=== PATIENT | female | born 1965 | race African-American/Black ===

== ENCOUNTER 2016-10-26 17:50 | Emergency (ER) | payer SELFPAY ==
[~2016-10-26] VITALS: Ht 170.2 cm; Wt 159.0 kg
[2016-10-26 17:52] VITALS: BP 197/89; PULSE 90; RESP 20; TEMP 99.6; O2SAT 100
--- NOTE | 2016-10-26 18:04 | PD ---
Physical Exam Time Seen by Provider: 18:02 Narrative 51yo F c/o epigastric abd pain since Monday night. +N, V, diarrhea. Denies fever. Basilio blood in stool or vomit. Patient seen in triage. VS reviewed. Awaiting bed placement. Data Data Last Documented VS Vital Signs Date Time Temp Pulse Resp B/P Pulse Ox O2 Delivery O2 Flow Rate FiO2 10/26/16 17:52 99.6 90 20 197/89 100 Room Air MDM Supervised Visit with CAMILA: Donita Cleveland Oct 26, 2016 18:04
[2016-10-26] MEDS ORDERED: SODIUM CHLOR 0.9% 1000 ML INJ 1,000 ML IV SCH (18:19)
--- NOTE | 2016-10-26 18:20 | PD ---
HPI Chief Complaint: Abdominal Pain Time Seen by Provider: 18:20 Travel History International Travel<30 days: No Contact w/Intl Traveler<30days: No Traveled to known affect area: No History of Present Illness HPI 51-year-old female with a history of hypertension presents to the emergency department for evaluation of epigastric abdominal pain with nausea, vomiting and diarrhea for 3 days. Patient states that the epigastric pain is sharp and intermittent. Denies any aggravating or alleviating factors. States that she' s had nausea with 1-2 episodes of nonbloody nonbilious emesis over the past 2 days, no vomiting today. States that she's had nonbloody diarrhea for the past 3 days. Denies any fever, chills, chest pain, shortness of breath, cough or cold symptoms, dysuria, hematuria. Denies any recent travel or sick contacts. Prior abdominal surgeries include cholecystectomy. No other complaints. PFSH Past Medical History ?: Not Social History Alcohol Use: Yes (occasional) Tobacco Use: Yes Allergies-Medications (Allergen,Severity, Reaction): Coded Allergies: Percocet (Verified Allergy, Unknown, 10/26/16) Review of Systems Except as stated in HPI: all other systems reviewed are Neg Physical Exam Narrative GENERAL: Obese female patient in no acute distress who is nontoxic appearing. SKIN: Warm and dry. HEAD: Normocephalic and atraumatic. EYES: No injection, drainage, or hyphema noted. PERRLA. EOMI. ENT: No nasal drainage noted. Oropharynx is clear. NECK: Supple and the trachea is midline. CARDIOVASCULAR: Regular rate and rhythm. RESPIRATORY: Breath sounds are equal bilaterally with no accessory muscle use, wheezing, rhonchi, or crackles. GASTROINTESTINAL: Mild epigastric tenderness to palpation. Abdomen is soft and nondistended. No rebound tenderness or guarding. MUSCULOSKELETAL: No obvious deformities, swelling, cyanosis, or ecchymosis is present throughout the upper and lower extremities. Patient has full range of motion without any signs of neurovascular compromise. NEUROLOGICAL: Awake, alert, and oriented. Normal speech and gait. Cranial nerves are grossly intact. Data Data Last Documented VS Vital Signs Date Time Temp Pulse Resp B/P Pulse Ox O2 Delivery O2 Flow Rate FiO2 10/26/16 18:49 81 16 185/103 97 Room Air 10/26/16 17:52 99.6 Orders Complete Blood Count With Diff (10/26/16 18:10) Comprehensive Metabolic Panel (10/26/16 18:10) Lipase (10/26/16 18:10) Urinalysis - C+S If Indicated (10/26/16 18:10) Iv Access Insert/Monitor (10/26/16 18:10) Ecg Monitoring (10/26/16 18:10) Oximetry (10/26/16 18:10) Ed Urine Pregnancytest Poc (10/26/16 18:10) Ondansetron Inj (Zofran Inj) (10/26/16 18:30) Sodium Chlor 0.9% 1000 Ml Inj (Ns 1000 M (10/26/16 18:19) Sodium Chloride 0.9% Flush (Ns Flush) (10/26/16 18:30) Famotidine Inj (Pepcid Inj) (10/26/16 18:30) Ketorolac Inj (Toradol Inj) (10/26/16 18:30) Electrocardiogram (10/26/16 18:23) Al-Mag Hy-Si 40-40-4 Mg/Ml Liq (Mag-Al P (10/26/16 19:45) Lidocaine 2% Viscous (Xylocaine 2% Visco (10/26/16 19:45) Labs Laboratory Tests Test 10/26/16 10/26/16 18:30 18:34 Urine Color YELLOW Urine Turbidity HAZY Urine pH 7.0 Urine Specific [place] 1.014 Urine Protein TRACE mg/dL Urine Glucose (UA) NEG mg/dL Urine Ketones NEG mg/dL Urine Occult Blood MOD Urine Nitrite NEG Urine Bilirubin NEG Urine Urobilinogen 2.0 MG/DL Urine Leukocyte Esterase NEG Urine RBC 2 /hpf Urine WBC 2 /hpf Urine Squamous Epithelial 6 /hpf Cells Urine Mucus FEW /lpf Microscopic Urinalysis Comment CULT NOT INDICATED White Blood Count 7.9 TH/MM3 Red Blood Count 4.74 MIL/MM3 Hemoglobin 10.5 GM/DL Hematocrit 32.2 % Mean Corpuscular Volume 68.0 FL Mean Corpuscular Hemoglobin 22.2 PG Mean Corpuscular Hemoglobin 32.7 % Concent Red Cell Distribution Width 21.7 % Platelet Count 331 TH/MM3 Mean Platelet Volume 9.1 FL Neutrophils (%) (Auto) 65.2 % Lymphocytes (%) (Auto) 22.8 % Monocytes (%) (Auto) 8.4 % Eosinophils (%) (Auto) 3.4 % Basophils (%) (Auto) 0.2 % Neutrophils # (Auto) 5.1 TH/MM3 Lymphocytes # (Auto) 1.8 TH/MM3 Monocytes # (Auto) 0.7 TH/MM3 Eosinophils # (Auto) 0.3 TH/MM3 Basophils # (Auto) 0.0 TH/MM3 CBC Comment DIFF FINAL Differential Comment Sodium Level 139 MEQ/L Potassium Level 3.4 MEQ/L Chloride Level 103 MEQ/L Carbon Dioxide Level 30.5 MEQ/L Anion Gap 6 MEQ/L Blood Urea Nitrogen 4 MG/DL Creatinine 0.68 MG/DL Estimat Glomerular Filtration 111 ML/MIN Rate Random Glucose 101 MG/DL Calcium Level 8.3 MG/DL Total Bilirubin 0.4 MG/DL Aspartate Amino Transf 10 U/L (AST/SGOT) Alanine Aminotransferase 12 U/L (ALT/SGPT) Alkaline Phosphatase 84 U/L Total Protein 8.2 GM/DL Albumin 3.0 GM/DL Lipase 63 U/L [facility] Medical Decision Making Medical Screen Exam Complete: Yes Emergency Medical Condition: Yes Differential Diagnosis Gastritis versus peptic ulcer disease versus gastroenteritis versus dehydration Narrative Course 51-year-old female presents to the emergency department for evaluation of epigastric abdominal pain for 3 days. Patient is afebrile, vital signs are stable. She is hypertensive with blood pressure 197/89. She admits that she does not take any blood pressure medications at this time because she does not have a PCP. IV access is obtained, labs were drawn and sent. Patient is administered IV fluids, Zofran, Pepcid and Toradol. CBC shows mild anemia with hemoglobin of 10.5, hematocrit 32.2, otherwise unremarkable. CMP shows mild hypokalemia with potassium of 3.4, otherwise unremarkable. Urinalysis shows moderate occult blood and few mucus. Patient is reassessed and reports some improvement of symptoms with the medications. I discussed with the patient that this is likely secondary to gastritis. She admits that she does have frequent gastric reflux and indigestion. She'll be given a GI cocktail and discharged home with Zantac. Instructed to follow-up with an outpatient with a PCP. Discussed diet modifications. Patient verbalizes understanding and agreement with treatment plan. Diagnosis Primary Impression: Gastritis Qualified Code: K29.00 - Acute gastritis without hemorrhage, unspecified gastritis type Referrals: [facility] Patient Instructions: Gastritis (ED), General Instructions Additional Instructions: Take medication as prescribed. Follow-up with your Primary Care Physician. Return to the ED for any acute worsening of symptoms. Med/Other Pt SpecificInfo: Prescription(s) given Scripts Ranitidine 150 Mg [id number] Mg PO BID 14 Days Ref 0 Prov:Romina Berry MD 10/26/16 Disposition: 01 DISCHARGE HOME Condition: Stable Donita Hinojosa Oct 26, 2016 18:20
[2016-10-26] MEDS ORDERED: KETOROLAC TROMETHAMINE 30 MG/ML (IVP) VIAL IV PUSH ONE (18:30)
[2016-10-26] MEDS ORDERED: ONDANSETRON HCL 4 MG/2 ML VIAL IVP ONE (18:30)
[2016-10-26] MEDS ORDERED: SODIUM CHLORIDE 0.9% FLUSH 10 ML FLUSH IV FLUSH PRN (18:30)
[2016-10-26] MEDS ORDERED: FAMOTIDINE 20 MG/2 ML VIAL IV PUSH ONE (18:30)
[2016-10-26 18:45] LABS: AUTOMATED NEUTROPHIL # 5.1 TH/MM3 (1.8-7.7); BASOPHIL % 0.2 % (0.0-2.0); EOSINOPHIL # 0.3 TH/MM3 (0-0.4); EOSINOPHIL % 3.4 % (0.0-4.0); HEMATOCRIT 32.2 % (35.0-46.0); HEMO FLAGS DIFF FINAL; LYMPH % 22.8 % (9.0-44.0); LYMPHOCYTE # 1.8 TH/MM3 (1.0-4.8); MEAN CORPUSCULAR HEMOGLOBIN 22.2 PG (27.0-34.0); MEAN CORPUSCULAR HGB CONC 32.7 % (32.0-36.0); MONO % 8.4 % (0.0-8.0); NEUT % 65.2 % (16.0-70.0); PLATELET COUNT 331 TH/MM3 (150-450); RED BLOOD COUNT 4.74 MIL/MM3 (4.00-5.30); RED CELL DISTRIBUTION WIDTH 21.7 % (11.6-17.2); WHITE BLOOD COUNT 7.9 TH/MM3 (4.0-11.0)
[2016-10-26 18:49] VITALS: BP 185/103; PULSE 81; RESP 16; O2SAT 97; O2SAT 99
[2016-10-26 18:59] LABS: BLOOD, URINE MOD (NEG); COMMENT (UR) CULT NOT INDICATED; CULTURE IF INDICATED CULT NOT INDICATED; GLUCOSE,URINE NEG (NEG); KETONE, URINE NEG (NEG); MUCUS URINE FEW /lpf (OCC); NITRITE,URINE NEG (NEG); SQUAMOUS EPITHELIAL CELL URINE 6 /hpf (0-5); URINE COLOR YELLOW (YELLW/STRAW)
[2016-10-26 19:12] LABS: ANION GAP 6 MEQ/L (5-15); AST (GOT) 10 U/L (15-37); BICARBONATE 30.5 MEQ/L (21.0-32.0); BLOOD UREA NITROGEN 4 MG/DL (7-18); CHLORIDE 103 MEQ/L (98-107); GLOMERULAR FILTRATION RATE 111 ML/MIN (>89); POTASSIUM 3.4 MEQ/L (3.5-5.1); SODIUM (NA) 139 MEQ/L (136-145)
[2016-10-26 19:16] LABS: ALKALINE PHOSPHATASE 84 U/L (45-117); ALT (GPT) 12 U/L (10-53); TOTAL BILIRUBIN ADULT 0.4 MG/DL (0.2-1.0)
[2016-10-26] MEDS ORDERED: RANI150T PO (19:38)
[2016-10-26] MEDS ORDERED: ALUMINUM/MAGNESIUM/SIMETH 30 ML CUP PO ONE (19:45)
[2016-10-26] MEDS ORDERED: LIDOCAINE VISCOUS 2% SOLN 15 ML UDC PO ONE (19:45)
--- NOTE | 2016-10-27 13:59 | EKG ---
Date Performed: 10/26/2016 Time Performed: 18:48:26 PTAGE: 51 years EKG: Sinus rhythm POSSIBLE LEFT ATRIAL ENLARGEMENT BORDERLINE ECG NO PREVIOUS TRACING DOCTOR: Jalil Godoy Interpretating Date/Time 10/27/2016 13:56:14
== END 2016-10-26 21:34 | disposition home or self-care (01) ==
LOC: NEPE 17:50
DX: K29.70 Gastritis, unspecified, without bleeding (principal); R11.2 Nausea with vomiting, unspecified; R19.7 Diarrhea, unspecified; Z72.0 Tobacco use; R94.31 Abnormal electrocardiogram [ECG] [EKG]
CPT/HCPCS: 80053; 81001; 83690; 84703; 85025; 93005; 96361; 96374; 96375; 99284; J1885; J2405; J7030

== ENCOUNTER 2016-10-28 21:14 | Emergency (ER) | payer SELFPAY ==
[~2016-10-28 21:14] MED LIST: RANI150T PO
[2016-10-28 21:16] VITALS: BP 196/105; PULSE 86; RESP 16; TEMP 99.5; O2SAT 96
[2016-10-28] MEDS ORDERED: SODIUM CHLOR 0.9% 1000 ML INJ 1,000 ML IV SCH (22:14)
[2016-10-28] MEDS ORDERED: SODIUM CHLORIDE 0.9% FLUSH 10 ML FLUSH IV FLUSH PRN (22:15)
[2016-10-28] MEDS ORDERED: MORPHINE SULFATE 4 MG/ML INJ IV PUSH ONE (22:15)
[2016-10-28] MEDS ORDERED: ONDANSETRON HCL 4 MG/2 ML VIAL IVP ONE (22:15)
[2016-10-28 22:40] VITALS: BP 147/93; PULSE 82; RESP 18; O2SAT 95
[2016-10-28 22:42] LABS: AUTOMATED NEUTROPHIL # 5.3 TH/MM3 (1.8-7.7); BASOPHIL % 0.4 % (0.0-2.0); EOSINOPHIL # 0.2 TH/MM3 (0-0.4); HEMATOCRIT 32.9 % (35.0-46.0); HEMO FLAGS DIFF FINAL; LYMPH % 23.3 % (9.0-44.0); LYMPHOCYTE # 1.8 TH/MM3 (1.0-4.8); MEAN CELL VOLUME 67.4 FL (80.0-100.0); MEAN CORPUSCULAR HEMOGLOBIN 21.7 PG (27.0-34.0); MEAN CORPUSCULAR HGB CONC 32.3 % (32.0-36.0); MONO % 6.6 % (0.0-8.0); NEUT % 66.7 % (16.0-70.0); PLATELET COUNT 378 TH/MM3 (150-450); RED BLOOD COUNT 4.89 MIL/MM3 (4.00-5.30); RED CELL DISTRIBUTION WIDTH 21.8 % (11.6-17.2); WHITE BLOOD COUNT 7.9 TH/MM3 (4.0-11.0)
[2016-10-28 22:54] LABS: BACTERIA, URINE RARE /hpf; BLOOD, URINE NEG (NEG); COMMENT (UR) CULT NOT INDICATED; CULTURE IF INDICATED CULT NOT INDICATED; GLUCOSE,URINE TRACE mg/dL (NEG); KETONE, URINE 10 mg/dL (NEG); MUCUS URINE MANY /lpf (OCC); NITRITE,URINE NEG (NEG); SQUAMOUS EPITHELIAL CELL URINE 6 /hpf (0-5); URINE COLOR DARK-YELLOW (YELLW/STRAW)
[2016-10-28 22:56] LABS: APTT (PATIENT) 28.5 SEC (24.3-30.1); PROTHROMBIN TIME - PATIENT 11.1 SEC (9.8-11.6)
[2016-10-28 23:08] LABS: ALKALINE PHOSPHATASE 78 U/L (45-117); ALT (GPT) 14 U/L (10-53); ANION GAP 9 MEQ/L (5-15); AST (GOT) 11 U/L (15-37); BICARBONATE 27.9 MEQ/L (21.0-32.0); BLOOD UREA NITROGEN 6 MG/DL (7-18); CHLORIDE 103 MEQ/L (98-107); GLOMERULAR FILTRATION RATE 98 ML/MIN (>89); INDIRECT BILIRUBIN 0.2 MG/DL (0.0-0.8); POTASSIUM 3.2 MEQ/L (3.5-5.1); SODIUM (NA) 140 MEQ/L (136-145); TOTAL BILIRUBIN ADULT 0.3 MG/DL (0.2-1.0)
[2016-10-28] MEDS ORDERED: IOHEXOL 350 MG/ML 10 ML VIAL (for RAD DIAG) IV ONE (23:18)
--- NOTE | 2016-10-28 23:40 | RADRPT ---
EXAM DATE/TIME: 10/28/2016 23:16 [place] COMPARISON: No previous studies available for comparison. INDICATIONS : Epigastric abdominal pain that radiates to back. IV CONTRAST: 100 cc Omnipaque 350 (iohexol) IV ORAL CONTRAST: No oral contrast ingested. RADIATION DOSE: 27.20 CTDIvol (mGy) MEDICAL HISTORY : Hypertension. SURGICAL HISTORY : Cholecystectomy. ENCOUNTER: Initial ACUITY: 4 - 6 days PAIN SCALE: 10/10 LOCATION: Bilateral Abdomen TECHNIQUE: Volumetric scanning of the abdomen and pelvis was performed. Using automated exposure control and ad justment of the mA and/or kV according to patient size, radiation dose was kept as low as reasonably achievable to obtain optimal diagnostic quality images. FINDINGS: LOWER LUNGS: The visualized lower lungs are clear. LIVER: Homogeneous density without lesion. The patient is status post cholecystectomy. SPLEEN: Normal size without lesion. PANCREAS: Within normal limits. KIDNEYS: Normal in size and shape. There is no mass, stone or hydronephrosis. ADRENAL GLANDS: Within normal limits. VASCULAR: There is no aortic aneurysm. BOWEL/MESENTERY: There are multiple diverticuli greatest in the sigmoid colon. The stomach, small bowel, and colon dem onstrate no acute abnormality. There is no free intraperitoneal air or fluid. There is a small hiata l hernia. ABDOMINAL WALL: Within normal limits. RETROPERITONEUM: There is no lymphadenopathy. BLADDER: No wall thickening or mass. REPRODUCTIVE: Within normal limits. INGUINAL: There is no lymphadenopathy or hernia. MUSCULOSKELETAL: Within normal limits for patient age. CONCLUSION: 1. Diverticulosis with no definite inflammatory change. 2. Status post cholecystectomy. 3. Small hiatal hernia. Abran Howell MD on October 28, 2016 at 23:34 Board Certified Radiologist. This report was verified electronically.
[2016-10-29] MEDS ORDERED: POTASSIUM CHLORIDE 20 MEQ CONTROLLED RELEASE TAB PO ONE (00:15)
[2016-10-29 00:23] VITALS: BP 161/85; PULSE 77; RESP 18; O2SAT 95
[2016-10-29] MEDS ORDERED: NORC5TAB PO (00:39)
--- NOTE | 2016-10-29 00:39 | PD ---
HPI Chief Complaint: Abdominal Pain Time Seen by Provider: 22:06 Travel History International Travel<30 days: No Contact w/Intl Traveler<30days: No Traveled to known affect area: No History of Present Illness HPI Patient is a 51-year-old female comes in complaining of abdominal pain. She says the pain is across the middle of her abdomen and radiates to her back. She also reports diarrhea for 5 days. She denies any blood in her stool. She was seen here a few days ago for the same thing and was discharged home and advised to take antacids. She says she continues to have pain. She has not had any vomiting. She denies fever or chills. She says it feels like pain that she had when she had issues with her gallbladder. She has had her gallbladder removed. [facility] Past Medical History Hypertension: Yes ?: Not Menopausal: No Past Surgical History Cholecystectomy: Yes Social History Alcohol Use: Yes (occasional) Tobacco Use: Yes (4 cigarettes per day) Substance Use: No Allergies-Medications (Allergen,Severity, Reaction): Coded Allergies: Percocet (Verified Allergy, Unknown, 10/28/16) Reported Meds & Prescriptions Reported Meds & Active Scripts Active [place] (Hydrocodone-Acetaminophen) 5-325 mg Tab 1 Tab PO Q6H PRN Ranitidine (Ranitidine HCl) 150 Mg Tab 150 Mg PO BID 14 Days Review of Systems Except as stated in HPI: all other systems reviewed are Neg General / Constitutional: No: Fever, Chills HENT: No: Headaches, Lightheadedness Cardiovascular: No: Chest Pain or Discomfort Respiratory: No: Shortness of Breath Gastrointestinal: Positive: Diarrhea, Abdominal Pain, No: Vomiting Genitourinary: No: Dysuria Skin: No Rash, No Change in Pigmentation Neurologic: No: Weakness, Dizziness Physical Exam Narrative GENERAL: Awake and alert, in no acute distress. SKIN: Focused skin assessment warm/dry. HEAD: Atraumatic. Normocephalic. EYES: Pupils equal and round. No scleral icterus. ENT: Mucous membranes pink and moist. NECK: Trachea midline. No JVD. CARDIOVASCULAR: Regular rate and rhythm. No murmur appreciated. RESPIRATORY: No accessory muscle use. Clear to auscultation. Breath sounds equal bilaterally. GASTROINTESTINAL: Abdomen soft, nondistended. Tender to palpation of the right upper quadrant and epigastric area. No rebound or guarding. No CVA tenderness. MUSCULOSKELETAL: No obvious deformities. No clubbing. No cyanosis. No edema. NEUROLOGICAL: Awake and alert. No obvious cranial nerve deficits. Motor grossly within normal limits. Normal speech. PSYCHIATRIC: Appropriate mood and affect; insight and judgment normal. Data Data Last Documented VS Vital Signs Date Time Temp Pulse Resp B/P Pulse Ox O2 Delivery O2 Flow Rate FiO2 10/29/16 00:23 77 18 161/85 95 Room Air 10/28/16 21:16 99.5 Orders Basic Metabolic Panel (Bmp) (10/28/16 22:14) Complete Blood Count With Diff (10/28/16 22:14) Lipase (10/28/16 22:14) Lactic Acid (10/28/16 22:14) Prothrombin Time / Inr (Pt) (10/28/16 22:14) Act Partial Throm Time (Ptt) (10/28/16 22:14) Urinalysis - C+S If Indicated (10/28/16 22:14) Ua Includes Microscopic (10/28/16 22:14) Ct Abd/Pel W Iv Contrast(Rout) (10/28/16 22:14) Iv Access Insert/Monitor (10/28/16 22:14) Ecg Monitoring (10/28/16 22:14) Oximetry (10/28/16 22:14) Morphine Inj (Morphine Inj) (10/28/16 22:15) Ondansetron Inj (Zofran Inj) (10/28/16 22:15) Sodium Chlor 0.9% 1000 Ml Inj (Ns 1000 M (10/28/16 22:14) Sodium Chloride 0.9% Flush (Ns Flush) (10/28/16 22:15) Electrocardiogram (10/28/16 22:14) Troponin I (10/28/16 22:14) Hepatic Functional Panel (10/28/16 22:14) Iohexol 350 Inj (Omnipaque 350 Inj) (10/28/16 23:18) Potassium Chloride (Kcl) (10/29/16 00:15) Labs Laboratory Tests Test 10/28/16 22:20 White Blood Count 7.9 TH/MM3 Red Blood Count 4.89 MIL/MM3 Hemoglobin 10.6 GM/DL Hematocrit 32.9 % Mean Corpuscular Volume 67.4 FL Mean Corpuscular Hemoglobin 21.7 PG Mean Corpuscular Hemoglobin 32.3 % Concent Red Cell Distribution Width 21.8 % Platelet Count 378 TH/MM3 Mean Platelet Volume 9.0 FL Neutrophils (%) (Auto) 66.7 % Lymphocytes (%) (Auto) 23.3 % Monocytes (%) (Auto) 6.6 % Eosinophils (%) (Auto) 3.0 % Basophils (%) (Auto) 0.4 % Neutrophils # (Auto) 5.3 TH/MM3 Lymphocytes # (Auto) 1.8 TH/MM3 Monocytes # (Auto) 0.5 TH/MM3 Eosinophils # (Auto) 0.2 TH/MM3 Basophils # (Auto) 0.0 TH/MM3 CBC Comment DIFF FINAL Differential Comment Prothrombin Time 11.1 SEC Prothromb Time International 1.0 RATIO Ratio Activated Partial 28.5 SEC Thromboplast Time Urine Color DARK-YELLOW Urine Turbidity HAZY Urine pH 6.0 Urine Specific [place] 1.026 Urine Protein 30 mg/dL Urine Glucose (UA) TRACE mg/dL Urine Ketones 10 mg/dL Urine Occult Blood NEG Urine Nitrite NEG Urine Bilirubin SMALL Urine Urobilinogen 2.0 MG/DL Urine Leukocyte Esterase TRACE Urine RBC 1 /hpf Urine WBC 4 /hpf Urine Squamous Epithelial 6 /hpf Cells Urine Bacteria RARE /hpf Urine Mucus MANY /lpf Microscopic Urinalysis Comment CULT NOT INDICATED Sodium Level 140 MEQ/L Potassium Level 3.2 MEQ/L Chloride Level 103 MEQ/L Carbon Dioxide Level 27.9 MEQ/L Anion Gap 9 MEQ/L Blood Urea Nitrogen 6 MG/DL Creatinine 0.76 MG/DL Estimat Glomerular Filtration 98 ML/MIN Rate Random Glucose 107 MG/DL Lactic Acid Level 0.9 mmol/L Calcium Level 8.5 MG/DL Total Bilirubin 0.3 MG/DL Direct Bilirubin 0.1 MG/DL Indirect Bilirubin 0.2 MG/DL Aspartate Amino Transf 11 U/L (AST/SGOT) Alanine Aminotransferase 14 U/L (ALT/SGPT) Alkaline Phosphatase 78 U/L Troponin I LESS THAN 0.02 NG/ML Total Protein 8.3 GM/DL Albumin 3.2 GM/DL Lipase 217 U/L [facility] Medical Decision Making Medical Screen Exam Complete: Yes Emergency Medical Condition: Yes Medical Record Reviewed: Yes Differential Diagnosis Gastritis versus GERD versus pancreatitis versus retained gallstone Narrative Course Patient is a 51-year-old female comes in complaining of abdominal pain. Patient of the right upper quadrant. IV established, labs sent. Labs show no acute abnormalities. CT abdomen and pelvis performed shows no acute abnormalities. Patient given pain medicine. She is advised follow-up with gastroenterology. Advised this could be due to gastritis/GERD, and to avoid spicy foods, ibuprofen, NSAIDs. Advised to return to the ED as needed for any worsening symptoms. Diagnosis Primary Impression: Abdominal pain Qualified Code: R10.13 - Epigastric pain Referrals: Kaitlyn Vasquez MD call for appointment Patient Instructions: Abdominal Pain (ED), Gastritis (ED), General Instructions Additional Instructions: Follow up with gastroenterology. Take pain medicine as needed. Return to the ED as needed for any worsening symptoms. Scripts Hydrocodone-Acetaminophen ([place])5-325 mg Tab1 Tab PO Q6H PRN (PAIN) #10 TAB Ref 0 Prov:Shahnaz Jacome MD 10/29/16 Disposition: 01 DISCHARGE HOME Condition: Stable Shahnaz Jacome MD Oct 29, 2016 00:39
--- NOTE | 2016-10-30 09:58 | EKG ---
Date Performed: 10/28/2016 Time Performed: 22:37:46 PTAGE: 51 years EKG: Sinus rhythm NORMAL ECG PREVIOUS TRACING : 10/26/2016 18.48 DOCTOR: Thong Jeffery Interpretating Date/Time 10/30/2016 09:47:04
== END 2016-10-29 01:15 | disposition home or self-care (01) ==
LOC: NEPE 21:14
DX: R10.13 Epigastric pain (principal); I10 Essential (primary) hypertension; F17.210 Nicotine dependence, cigarettes, uncomplicated
CPT/HCPCS: 74177; 80048; 80076; 81001; 83605; 83690; 84484; 85025; 85610; 85730; 93005; 96361; 96374; 96375; 99285; J2270; J2405; J7030; Q9967